=== PATIENT | female | born 1985 | race Caucasian/White ===

== ENCOUNTER → 2020-10-29 | Outpatient (CLI) | payer BC ==
--- NOTE | 2020-10-30 08:28 | MR ---
EXAMINATION TYPE: MR lumbar spine wo con, MR pelvis wo con DATE OF EXAM: 10/29/2020 COMPARISON: Outside lumbar spine x-ray October 06, 2020 HISTORY: Low back pain, pain down right leg and sacrococcygeal disorders for 3 years. TECHNIQUE: Multiplanar, multisequence imaging of the lumbar spine and pelvis are performed without IV contrast. FINDINGS: Lumbar spine: There is persistent dextroconvex scoliosis centered in the upper lumbar spine. Sagittal images of the lumbar spine show vertebral body heights to remain satisfactory. Alignment is straightened on sagitt al images. Slight grade 1 There is disc desiccation L4-L5 and L5-S1 levels. Annular tear L4-L5 level noted. Disc space heights fairly well maintained. The conus medullaris is normal in position and sig nal ending mid L1 level. The bone marrow signal intensity is within normal limits. Axial images show T12-L1, L1-L2, and L2-L3 levels all to appear within normal limits. Axial images at L3-L4 level shows a tiny central disc protrusion mildly effacing the anterior thecal sac. Patent Bilateral neural foramina. Axial images at L4-L5 level mild facet arthropathy. There is mild broad disc bulge with central disc protrusion effacing the anterior thecal sac. Patent bilateral neural foramina. Axial images at the L5-S1 levels with broad-based right paracentral disc protrusion measuring 15 mm t ransversely. Spinal canal is preserved and there is increased epidural fat but there is effacement o f the central right S1 nerve identified axial image 4. Mild facet arthropathy bilaterally. Patent shukri ateral neural foramina. Paraspinal muscle bulk is maintained bilaterally. Pelvis: Sacroiliac joints are symmetric and felt within normal limits. Hip joints show symmetric small effusi ons presumed physiologic. Pubic symphysis is intact. No suspicious osseous edema noted. Sacral alar a re intact. There is anteverted uterus. There is thin-walled 3.5 x 3.3 cm left ovarian cyst axial image 15 series 501. Patient has little intra-abdominal fat. No suspicious bowel dilatation. No pelvic fluid. No jolene in hernia or adenopathy. Muscle bulk bilateral thighs maintained. IMPRESSION: Scoliosis with multilevel degenerative changes mid to lower lumbar spine. Attention to L5 -S1 level where right paracentral disc protrusion effaces the central right S1 nerve likely accountin g for patient's right-sided radiculopathy type symptoms.
== END | disposition home or self-care (01) ==
LOC: RADMRIMAIN 14:35
PROVIDERS: ATTEND Orthopaedic Surgery
DX: M41.86 Other forms of scoliosis, lumbar region (principal); M47.816 Spondylosis without myelopathy or radiculopathy, lumbar region; M51.27 Other intervertebral disc displacement, lumbosacral region
CPT/HCPCS: 72148; 72195